=== PATIENT | male | born 1980 | race Caucasian/White ===

== ENCOUNTER → 2025-01-06 | Day surgery (SDC) | payer BC ==
[~2025-01-06] VITALS: Ht 187.9 cm; Wt 99.8 kg
[~2025-01-06] MED LIST: Lactated Ringer's Solution 1,000 ML IV ONE; Lidocaine Hydrochloride 2% 5 ML SDV IV ONE; PROPOFOL 200 MG/20 ML VIAL IV ONE
[2025-01-06 07:48] VITALS: BP 110/71
[2025-01-06 09:08] VITALS: BP 121/85
[2025-01-06 09:23] VITALS: BP 119/66
[2025-01-06 09:37] VITALS: BP 110/64
== END | disposition home or self-care (01) ==
LOC: SDC 01-02 09:30
PROVIDERS: ATTEND Surgery
DX: Z12.11 Encounter for screening for malignant neoplasm of colon (principal); Z98.52 Vasectomy status; Z80.0 Family history of malignant neoplasm of digestive organs